=== PATIENT | female | born 1965 | race Caucasian/White ===

== ENCOUNTER 2017-08-11 14:59 | Observation (INO) | payer MEDICAID ==
[~2017-08-11] VITALS: Ht 152.4 cm; Wt 69.0 kg
[~2017-08-11 14:59] MED LIST: PRED10TA PO
[2017-08-11 15:40] LABS: BASOPHILS % (AUTO) 0.4 % (0-1); EOSINOPHILS # (AUTO) 0.5 X10'3 (0-0.9); EOSINOPHILS % (AUTO) 7.9 % (0-6); HEMATOCRIT 41.9 % (35.0-45.0); HEMOGLOBIN 14.5 g/dl (12.0-16.0); LYMPHOCYTES % (AUTO) 15.8 % (21-51); MEAN CORPUSCULAR HEMOGLOBIN 29.7 PG (27.0-31.0); MEAN CORPUSCULAR HGB CONC 34.7 % (33.0-36.5); MEAN CORPUSCULAR VOLUME 85.7 FL (78-98); MEAN PLATELET VOLUME 7.2 FL (7.4-10.4); MONOCYTES # (AUTO) 0.4 X10'3 (0-0.9); MONOCYTES % (AUTO) 6.5 % (2-12); NEUTROPHILS # (AUTO) 4.5 X10'3 (1.8-7.7); NEUTROPHILS % (AUTO) 69.4 % (42-75); PLATELET COUNT 366 X10'3 (140-440); RED BLOOD COUNT 4.89 X10'6 (4.20-5.60); RED CELL DISTRIBUTION WIDTH 13.1 % (11.5-14.5); WHITE BLOOD COUNT 6.6 X10'3 (4.5-11.0)
[2017-08-11 15:49] LABS: PARTIAL THROMBOPLASTIN TIME 27 SECONDS (22-32); PROTHROMBIN TIME 10.5 SECONDS (9.0-12.0)
[2017-08-11 15:55] LABS: ALANINE AMINOTRANSFERASE 23 U/L (12-78); ALBUMIN 4.4 G/DL (3.4-5.0); ALBUMIN/GLOBULIN RATIO 1.3 (1.1-1.5); ALKALINE PHOSPHATASE 82 IU/L (46-116); ANION GAP 9 (8-16); ASPARTATE AMINO TRANSFERASE 18 U/L (10-37); BILIRUBIN,TOTAL 0.5 MG/DL (0.1-1.0); BLOOD UREA NITROGEN 10 MG/DL (7-18); BUN/CREATININE RATIO 14.1 (6.6-38.0); CALCIUM 9.3 MG/DL (8.5-10.1); CHLORIDE 106 MMOL/L (99-107); CREATININE 0.71 MG/DL (0.40-0.90); GLUCOSE 137 MG/DL (70-104); POTASSIUM 3.6 MMOL/L (3.5-5.1); SODIUM 146 MMOL/L (135-145); TOTAL CARBON DIOXIDE 30.8 MMOL/L (24-32); TOTAL PROTEIN 7.8 G/DL (6.4-8.2); eGFR 86 ML/MIN
[2017-08-11] MEDS ORDERED: normal saline 1000ML IV soln IVB ONE (16:00)
[2017-08-11] MEDS ORDERED: aspirin 81mg tab.chew PO ONE ×2 (16:00)
[2017-08-11] MEDS ORDERED: nitroGLYCERIN 0.4mg/hour patch TD ONE (16:35)
[2017-08-11] MEDS ORDERED: hyDRALAzine 10mg tablet PO SCH (18:20)
[2017-08-11] MEDS ORDERED: nitroGLYCERIN 0.4mg SUBLingual tab SL PRN (18:55)
[2017-08-11] MEDS ORDERED: acetaminophen 325mg tablet PO PRN ×2 (18:55)
[2017-08-11] MEDS ORDERED: morphine 2 MG/ML inj. syringe IV PRN ×2 (18:55)
[2017-08-11] MEDS: enoxaparin 40mg/0.4ml syringe SUBCUT SCH (19:11)
[2017-08-11 19:25] LABS: HEMOGLOBIN A1C 5.8 % (4.5-6.2)
[2017-08-11 19:33] LABS: CHOL/HDL RATIO 3.7 (0.00-4.99); CHOLESTEROL 216 MG/DL (0-200); HDL CHOLESTEROL 59 MG/DL (35-60); LDL CHOLESTEROL 144 MG/DL (50-100); TRIGLYCERIDES 122 MG/DL (20-135)
[2017-08-11 20:45] VITALS: BP 114/77
[2017-08-11 23:00] VITALS: BP 122/67
[2017-08-12] VITALS (12 sets, daily range): BP systolic 107–140; BP diastolic 59–88
[2017-08-12] MEDS: diphenhydrAMINE 25mg capsule PO PRN ×2 (00:44→13:37)
[2017-08-12 03:50] LABS: BASOPHILS % (AUTO) 0.5 % (0-1); EOSINOPHILS # (AUTO) 0.5 X10'3 (0-0.9); EOSINOPHILS % (AUTO) 7.4 % (0-6); HEMATOCRIT 35.4 % (35.0-45.0); HEMOGLOBIN 12.1 g/dl (12.0-16.0); LYMPHOCYTES % (AUTO) 14.5 % (21-51); MEAN CORPUSCULAR HEMOGLOBIN 29.1 PG (27.0-31.0); MEAN CORPUSCULAR HGB CONC 34.1 % (33.0-36.5); MEAN CORPUSCULAR VOLUME 85.4 FL (78-98); MEAN PLATELET VOLUME 7.2 FL (7.4-10.4); MONOCYTES # (AUTO) 0.6 X10'3 (0-0.9); MONOCYTES % (AUTO) 8.4 % (2-12); NEUTROPHILS # (AUTO) 4.8 X10'3 (1.8-7.7); NEUTROPHILS % (AUTO) 69.2 % (42-75); PLATELET COUNT 324 X10'3 (140-440); RED BLOOD COUNT 4.14 X10'6 (4.20-5.60); RED CELL DISTRIBUTION WIDTH 13.1 % (11.5-14.5)
[2017-08-12 04:05] LABS: ALANINE AMINOTRANSFERASE 23 U/L (12-78); ALBUMIN 3.5 G/DL (3.4-5.0); ALBUMIN/GLOBULIN RATIO 1.2 (1.1-1.5); ALKALINE PHOSPHATASE 68 IU/L (46-116); ANION GAP 8 (8-16); ASPARTATE AMINO TRANSFERASE 14 U/L (10-37); BILIRUBIN,TOTAL 0.3 MG/DL (0.1-1.0); BLOOD UREA NITROGEN 14 MG/DL (7-18); BUN/CREATININE RATIO 20.9 (6.6-38.0); CALCIUM 8.5 MG/DL (8.5-10.1); CHLORIDE 107 MMOL/L (99-107); CREATININE 0.67 MG/DL (0.40-0.90); GLUCOSE 93 MG/DL (70-104); MAGNESIUM 2.2 MG/DL (1.5-2.4); POTASSIUM 3.6 MMOL/L (3.5-5.1); SODIUM 142 MMOL/L (135-145); TOTAL CARBON DIOXIDE 26.8 MMOL/L (24-32); TOTAL PROTEIN 6.4 G/DL (6.4-8.2); eGFR > 90 ML/MIN
[2017-08-12] MEDS ORDERED: metoprolol tartrate 1mg/ml inj IV PRN (07:35)
[2017-08-12] MEDS ORDERED: regadenoson 0.4mg/5ml syringe IV ONE ×2 (07:35→09:23)
[2017-08-12] MEDS ORDERED: aminophylline 250mg/10ml inj. IV PRN (07:35)
[2017-08-12] MEDS ORDERED: nitroGLYCERIN 0.4mg SUBLingual tab SL PRN (07:35)
[2017-08-12] MEDS ORDERED: lisinopril 10 MG tablet PO SCH (08:00)
[2017-08-12] MEDS: enoxaparin 40mg/0.4ml syringe SUBCUT SCH (08:14)
[2017-08-12] MEDS ORDERED: aminophylline inj. 10 ML IV ONE (09:23)
[2017-08-12] MEDS ORDERED: ibuprofen tablet 400 MG TABLET PO PRN (11:25)
[2017-08-12] MEDS ORDERED: DIPH-423 PO (15:53)
[2017-08-12] MEDS ORDERED: IBUP-1984 PO (15:53)
[2017-08-12] MEDS ORDERED: LISI10TA4 PO (15:53)
[2017-08-12] MEDS ORDERED: TRIA15CR62 TP (15:53)
== END 2017-08-12 16:20 | disposition home or self-care (01) ==
LOC: ER 14:59 → ED HOLD 18:54 → PCU 3S 20:35
PROVIDERS: ADMIT Internal Medicine; ATTEND Internal Medicine
DX: R07.9 Chest pain, unspecified (principal); M79.642 Pain in left hand; I16.0 Hypertensive urgency; E78.5 Hyperlipidemia, unspecified; E78.00 Pure hypercholesterolemia, unspecified; I45.10 Unspecified right bundle-branch block
CPT/HCPCS: 36415; 71045; 78452; 80053; 80061; 83036; 83735; 84484; 85025; 85610; 85730; 87070; 93005; 93017; 96360; 96372; 99285; A9500; G0378; J0280; J1650; J7030; Q0163

== ENCOUNTER 2017-10-27 17:58 | Emergency (ER) | payer MEDICAID ==
[~2017-10-27] VITALS: Ht 152.4 cm; Wt 63.3 kg
[~2017-10-27 17:58] MED LIST changes: +DIPH-423 PO; +IBUP-1984 PO; +LISI10TA4 PO; -PRED10TA PO; +TRIA15CR62 TP
[2017-10-27 18:05] VITALS: BP 147/92
[2017-10-27] MEDS ORDERED: TRIA15CR61 TOP (20:17)
[2017-10-27] MEDS ORDERED: fluconazole 100mg tablet PO ONE (20:20)
== END 2017-10-27 20:49 | disposition home or self-care (01) ==
LOC: ER 17:59
DX: B35.4 Tinea corporis (principal); L30.9 Dermatitis, unspecified; E78.00 Pure hypercholesterolemia, unspecified; Z88.1 Allergy status to other antibiotic agents; Z79.899 Other long term (current) drug therapy
CPT/HCPCS: 99283

== ENCOUNTER 2022-07-20 20:32 | Emergency (ER) | payer MEDICAID ==
[~2022-07-20] VITALS: Ht 152.4 cm; Wt 67.3 kg
[~2022-07-20 20:32] MED LIST changes: +LISI10TA27 PO; -LISI10TA4 PO
[2022-07-20 21:52] LABS: CLARITY,URINE CLEAR (Clear); COLOR,URINE STRAW (Yellow); GLUCOSE, URINE NEGATIVE (Neg); KETONES,URINE TRACE mg/dl (Neg); LEUKOCYTE ESTERASE ,URINE NEGATIVE (Neg); NITRITES, URINE NEGATIVE (Neg); OCCULT BLOOD,URINE NEGATIVE (Neg); PROTEIN,URINE NEGATIVE (Neg); UROBILINOGEN,URINE 0.2 E.U/dL (0.2-1.0)
[2022-07-20 21:53] LABS: UA COLLECTION TYPE CLN CATCH MIDSTREAM
[2022-07-20] MEDS ORDERED: normal saline 1000ML IV soln IVB ONE (22:45)
[2022-07-20] MEDS ORDERED: acetaminophen 325mg tablet PO ONE (22:45)
[2022-07-20] MEDS ORDERED: ondansetron/PF 4mg/2ml inj IV ONE (22:45)
[2022-07-20 22:58] LABS: BASOPHILS % (AUTO) 0.4 % (0-1); EOSINOPHILS # (AUTO) 0.5 X10'3 (0-0.9); EOSINOPHILS % (AUTO) 4.7 % (0-6); HEMATOCRIT 43.4 % (35.0-45.0); HEMOGLOBIN 14.5 g/dl (12.0-16.0); LYMPHOCYTES # (AUTO) 1.1 X10'3 (1.1-4.8); LYMPHOCYTES % (AUTO) 9.4 % (21-51); MEAN CORPUSCULAR HEMOGLOBIN 28.7 PG (27.0-31.0); MEAN CORPUSCULAR HGB CONC 33.5 g/dL (33.0-36.5); MEAN CORPUSCULAR VOLUME 85.9 FL (78-98); MEAN PLATELET VOLUME 6.9 FL (7.4-10.4); MONOCYTES # (AUTO) 0.7 X10'3 (0-0.9); MONOCYTES % (AUTO) 6.4 % (2-12); NEUTROPHILS # (AUTO) 9.1 X10'3 (1.8-7.7); NEUTROPHILS % (AUTO) 79.1 % (42-75); PLATELET COUNT 331 X10'3 (140-440); RED BLOOD COUNT 5.05 X10'6 (4.20-5.60); RED CELL DISTRIBUTION WIDTH 12.9 % (11.5-14.5); WHITE BLOOD COUNT 11.5 X10'3 (4.5-11.0)
[2022-07-20 23:10] LABS: ALANINE AMINOTRANSFERASE 24 U/L (12-78); ALBUMIN 4.4 G/DL (3.4-5.0); ALBUMIN/GLOBULIN RATIO 1.1 (1.1-1.5); ALKALINE PHOSPHATASE 86 IU/L (46-116); ANION GAP 6 (8-16); ASPARTATE AMINO TRANSFERASE 20 U/L (10-37); BILIRUBIN,TOTAL 0.6 MG/DL (0.1-1.0); BLOOD UREA NITROGEN 6 MG/DL (7-18); BUN/CREATININE RATIO 8.3 (6.6-38.0); CALCIUM 9.5 MG/DL (8.5-10.1); CHLORIDE 105 MMOL/L (99-107); CREATININE 0.72 MG/DL (0.40-0.90); GLUCOSE 116 MG/DL (70-104); LIPASE 53 U/L (73-393); POTASSIUM 3.9 MMOL/L (3.5-5.1); SODIUM 139 MMOL/L (135-145); TOTAL CARBON DIOXIDE 28.5 MMOL/L (24-32); TOTAL PROTEIN 8.3 G/DL (6.4-8.2); eGFR 83 ML/MIN
[2022-07-20] MEDS ORDERED: iohexol 300mg/ml 100ml inj. ONE (23:39)
[2022-07-21 02:24] VITALS: BP 127/84
== END 2022-07-21 02:48 | disposition home or self-care (01) ==
LOC: ER 20:32
DX: D25.9 Leiomyoma of uterus, unspecified (principal); M54.50 Low back pain, unspecified; E78.00 Pure hypercholesterolemia, unspecified; R10.31 Right lower quadrant pain; Z90.89 Acquired absence of other organs; Z98.890 Other specified postprocedural states; Z72.89 Other problems related to lifestyle; Z88.1 Allergy status to other antibiotic agents; Z79.899 Other long term (current) drug therapy
CPT/HCPCS: 36415; 74177; 80053; 81003; 83690; 85025; 96361; 96374; 99285; J2405; J3490; J7030; Q9967